=== PATIENT | female | born 1960 | race African-American/Black ===

== ENCOUNTER 2017-01-10 18:17 | Emergency (ER) | payer OTHER ==
--- NOTE | ~2017-01-10 | EKG ---
PATIENT: WALTER BLAKE UNIT #: [id number] Ventricular Rate: 81 BPM Atrial Rate: 81 BPM P-R Interval: 140 ms QRS Duration: 82 ms Q-T Interval: 382 ms QTC Calculation(Bezet): 443 ms P [place]: 74 degrees Calculated R [place]: 11 degrees Calculated T [place]: 38 degrees Diagnosis Line: Normal sinus rhythm Diagnosis Line: Normal ECG Diagnosis Line: When compared with ECG of 27-SEP-2013 10:49, Diagnosis Line: No significant change was found Diagnosis Line: Confirmed by LORENA SALINAS MD ([id number]) on 01/12/2017 Diagnosis Line: 4:29:38 PM INTERPRETING MD: BRAD GRULLON
[~2017-01-10 18:17] MED LIST: ACETAMINOPHEN PO; ACETAMINOPHEN325 MG PO; ACTOS15 MG PO; ALBUTEROL17 GM INH; ALLEGRA PO; ALPRAZOLAM PO; ALPRAZOLAM0.5 M1 PO; ALPRAZOLAM0.5 MG PO; APIDRA (NF100 UNITS/ SUBQ; APIDRA SOL100 UNIT/1 SQ; ASPIRIN81 M2 PO; ASPIRIN81 MG PO; ATARAX PO; BACID PO; BENADRYL PO; BENTYL20 MG PO; CIPRO PO; CITRATE OF MAG296 M1 PO; CLARITIN10 M2 PO; COLACE50 MG PO; COUMADIN5 MG PO; DIABETA5 M1 PO; DOXYCYCLINE HY100 M1 PO; DOXYCYCLINE HY100 M3 PO; EFFEXOR37.5 MG PO; ERYTHROMYCIN O3.5 GM OD; FIORICET 50-321 EACH PO; FLEXERIL PO; FLUCONAZOLE150 M1 PO; HCTZ; HCTZ PO; HYDROCHLOROTHIA25 MG PO; HYDROCODON-ACE1 EAC4 PO; HYDROCODON-ACE1 EAC5 PO; INSULIN; KOMBIGLYZE XR1 EAC1 PO; LANTUS SOLOSTAR3 ML SQ; LANTUS SOLOSTAR3 ML SUBQ; LANTUS100 U/ML SUBQ; LANTUS100 UNITS/ SUBQ; LISINOPRIL PO; LISINOPRIL20 MG PO; LORTAB 10/500 T1 TAB PO; LORTAB 5/500 TA1 TA1 PO; LORTAB 7.5-5001 TAB PO; METFORMIN HCL500 M1; METHOCARBAMOL500 MG PO; MIRALAX17 GM PO; NORVASC2.5 MG PO; NOVOLOG100 UNITS/ SUBQ; OMEPRAZOLE20 M2 PO; OMEPRAZOLE40 M1 PO; OMEPRAZOLE40 MG PO; OXYCONTIN20 MG PO; OXYIR5 MG PO; PEGINTRON SQ; PENICILLIN PO; PHENERGAN DM1 ML PO; PHENERGAN PO; PHENERGAN VC W120 M1 PO; PHENERGAN25 MG PO; PROMETHAZINE HC25 MG PO; PYRIDIUM100 MG PO; REBETOL200 MG PO; REGLAN PO; RIBAVIRIN200 M1 PO; ROBAXIN PO; ROBAXIN500 MG PO; ROBITUSSIN100 MG/51 PO; SOVALDI400 MG PO; SPIRIVA18 MCG INH; SYMBICORT INH; TAMIFLU75 M1 PO; TEMAZEPAM PO; TRIAMTERENE-HCT1 TA6 PO; TRIAMTERENE-HCT1 TA7 PO; ULTRAM PO; VICODIN 5/1 TAB 5/50 PO; VICODIN PO; VOLTAREN75 MG PO; XANAX1 MG PO; ZESTRIL30 MG; ZITHROMAX PO; ZITHROMAX1 G/PKT PO; [UNRECOGNIZED DRUG - OTHER]; [UNRECOGNIZED DRUG - OTHER]; [UNRECOGNIZED DRUG - OTHER] SQ
[2017-01-10 19:13] LABS: BASOPHIL# 0.1 X10e3 (0-0.3); BASOPHIL% 0.9 % (0-2.5); EOSINOPHIL# 0.1 X10e3 (0-0.7); EOSINOPHIL% 0.6 % (0.0-7.0); HEMATOCRIT 45.3 % (35.0-45.0); HEMOGLOBIN 14.8 gm/dL (12.0-16.0); LYMPHOCYTE# 2.3 X10e3 (1.0-3.5); LYMPHOCYTE% 24.2 % (17.0-45.0); MEAN CELL VOLUME 97.2 FL (83-96); MEAN CORPUSCULAR HEMOGLOBIN 31.7 PG (28-34); MEAN CORPUSCULAR HGB CONC 32.6 g/dL (30-36); MEAN PLATELET VOLUME 9.7 FL (6.5-11.5); MONOCYTE# 0.6 X10e3 (0-1.0); MONOCYTE% 6.4 % (3.0-12.0); NEUTROPHIL# 6.6 X10e3 (1.5-7.1); NEUTROPHIL% 67.9 % (40-75); PLATELET COUNT 218 X10e3 (140-420); RED BLOOD COUNT 4.66 X10e (3.90-5.30); RED CELL DISTRIBUTION WIDTH 14.4 % (11.0-15.5); WHITE BLOOD COUNT 9.7 X10e3 (4.0-10.5)
[2017-01-10 19:20] LABS: DIFF IND NO
[2017-01-10 19:42] LABS: ALBUMIN SERUM 3.6 g/dL (3.5-5.0); BILIRUBIN, DIRECT 0.1 mg/dL (0.0-0.2); BILIRUBIN,INDIRECT 0.5 mg/dL (0.0-0.9); BILIRUBIN,TOTAL 0.6 mg/dL (0.2-2.0); BUN/CREATININE RATIO 19.09; CREATININE SERUM 1.1 mg/dL (0.6-1.4); GLOM FILT RATE Estimated 64.1 mL/min (>60); POTASSIUM 3.9 mmol/L (3.5-5.1); PROTEIN TOTAL SERUM 8.6 g/dL (6.0-8.3)
[2017-01-10 20:57] LABS: URINE SOURCE CLEAN CATCH
[2017-01-10 21:01] LABS: URINE APPEARANCE CLOUDY; URINE BILIRUBIN NEG (NEG); URINE BLOOD TRACE (NEG); URINE COLOR YELLOW; URINE GLUCOSE NEG (NEG); URINE KETONE NEG (NEG); URINE LEUKOCYTE ESTERASE 3+ (NEG); URINE NITRATE POS (NEG); URINE PH 5.5 (5-8); URINE PROTEIN NEG (NEG); URINE SPECIFIC GRAVITY 1.018 (1.003-1.035)
[2017-01-10 21:04] LABS: CULTURE INDICATED? YES; URINE BACTERIA AUWI 4+ (NEGATIVE); URINE SQUAMOUS EPITHELIAL CELL NONE SEEN /[HPF]; UWBCS1 AUWI 200-300 (0-5)
[2017-01-10 21:36] LABS: %MB 1.6 % (0.0-4.0); MB 1.1 ng/ml
[2017-01-10 21:57] LABS: AMPHETAMINE NEG (NEG); BARBITURATES NEG (NEG); BENZODIAZEPINES NEG (NEG); COCAINE NEG (NEG); MARIJUANA POS (NEG); OPIATES NEG (NEG); TRICYCLIC ANTIDEPRESSANTS NEG (NEG); U METHADONE NEG (NEG)
== END 2017-01-10 23:20 | disposition home or self-care (01) ==
LOC: CED 18:17
PROVIDERS: Emergency Medicine
DX: N39.0 Urinary tract infection, site not specified (principal); J44.9 Chronic obstructive pulmonary disease, unspecified; F41.9 Anxiety disorder, unspecified; F17.200 Nicotine dependence, unspecified, uncomplicated; Z98.890 Other specified postprocedural states; Z79.899 Other long term (current) drug therapy
CPT/HCPCS: 36415; 80048; 80076; 80307; 81003; 82550; 82553; 84484; 85025; 87086; 87088; 87186; 93005; 96361; 96365; 96375; 99283; 99284; J0696; J2270